=== PATIENT | male | born 2005 | race African-American/Black ===

== ENCOUNTER 2023-01-02 07:09 | Emergency (ER) | payer OTHER ==
[2023-01-02] MEDS ORDERED: Ibuprofen 200 MG TAB ONE ×2 (07:43→07:47)
== END 2023-01-02 08:04 ==
LOC: CSHERS 07:09
DX: S43.401A Unspecified sprain of right shoulder joint, initial encounter (principal); F17.290 Nicotine dependence, other tobacco product, uncomplicated; W18.30XA Fall on same level, unspecified, initial encounter